=== PATIENT | male | born 1940 | race Caucasian/White ===

== ENCOUNTER → 2023-10-02 10:51 | Outpatient (REF) | payer OTHER, SELFPAY ==
[2023-10-02 15:30] LABS: % Basophils 0.7 % (0-2); % Eosinophils 2.5 % (0-6); % Immature Granulocytes 0.3 % (0-0.5); % Lymphocytes 44.9 % (20.5-51.1); % Monocytes 12.4 % (1.7-9.3); % Neutrophils 39.2 % (42.2-75.2); Absolute Basophils 0.1 10^3/uL (0-0.2); Absolute Eosinophils 0.2 10^3/uL (0-0.7); Absolute Monocytes 0.8 10^3/uL (0.1-0.6); Absolute Neutrophils 2.6 10^3/uL (1.4-6.5); Hematocrit 40.9 % (39.0-52.0); Hemoglobin 14.1 g/dL (13.0-18.0); Mean Corp Hgb Conc. 34.5 g/dL (33.0-37.0); Mean Corpuscular Hgb 32.7 pg (27.0-31.0); Mean Corpuscular Volume 94.9 fL (80.0-94.0); Mean Platelet Volume 11.4 fL (7.4-10.4); Nucleated Red Blood Cells % 0 % (-); Platelet Count 158 10^3/uL (130-400); Red Blood Cell Count 4.31 10^6/uL (4.70-6.10); Red Cell Dist. Width 13.9 % (11.5-14.5); White Blood Cell Count 6.7 10^3/uL (4.8-10.8)
[2023-10-02 15:46] LABS: Erythrocyte Sed Rate 35 mm/hour (0-20)
[2023-10-02 15:47] LABS: ALT (SGPT) 24 U/L (0-50); AST (SGOT) 32 U/L (17-59); Albumin 3.5 g/dl (3.5-5.0); Alkaline Phosphatase 78 U/L (38-126); Blood Urea Nitrogen 22 mg/dl (9-20); Calcium 8.9 mg/dl (8.4-10.2); Carbon Dioxide 27 mmol/L (22-30); Chloride 101 mmol/L (98-107); Glucose 94 mg/dl (70-99); Potassium 4.3 mmol/L (3.5-5.1); Sodium 136 mmol/L (135-145); Total Bilirubin 0.8 mg/dl (0.2-1.3); Total Protein 7.1 g/dl (6.3-8.2); eGFR > 60.00
== END ==
LOC: HWLAB 10:51
PROVIDERS: ATTENDING PHYSICIAN Internal Medicine Rheumatology; FAMILY PHYSICIAN Internal Medicine
DX: M05.89 Other rheumatoid arthritis with rheumatoid factor of multiple sites (principal); R79.82 Elevated C-reactive protein (CRP)
CPT/HCPCS: 36415; 80053; 85025; 85652; 86140

== ENCOUNTER → 2023-10-16 12:08 | Outpatient (REF) | payer OTHER, SELFPAY ==
[2023-10-16 16:32] LABS: PSA, Total - Diagnostic 0.19 ng/ml (0.0-4.0)
== END ==
LOC: HWLAB 12:08
PROVIDERS: ATTENDING PHYSICIAN Specialist; FAMILY PHYSICIAN Internal Medicine
DX: C61 Malignant neoplasm of prostate (principal)
CPT/HCPCS: 36415; 84153

== ENCOUNTER → 2023-11-12 08:13 | Outpatient (REF) | payer OTHER, SELFPAY ==
[2023-11-12 09:56] LABS: Urine Albumin Negative (Neg - Trace); Urine Bilirubin Negative (Negative); Urine Character Clear (Clear); Urine Color Yellow; Urine Glucose Negative (Negative); Urine Ketone Negative (Negative); Urine Leukocyte Negative (Negative); Urine Nitrite Negative (Negative); Urine Occult Blood Negative (Negative); Urine Urobilinogen Negative (Neg - 1+)
== END ==
LOC: HWLAB 08:13
PROVIDERS: ATTENDING PHYSICIAN Specialist; FAMILY PHYSICIAN Internal Medicine
DX: N39.0 Urinary tract infection, site not specified (principal)
CPT/HCPCS: 81003; 87086

== ENCOUNTER 2023-12-06 12:05 | Emergency (ER) | payer OTHER, SELFPAY ==
[2023-12-06 12:08] VITALS: BP 180/99
--- NOTE | 2023-12-06 12:48 | EDRN ---
Dr. Smith in room w/ pt at [facility] time.
--- NOTE | 2023-12-06 12:56 | ED.GENMED ---
History of Present Illness
General
Chief Complaint: Back Pain
Source: patient
Exam Limitations: none
Time Seen by Provider: 12/06/23 12:33
Nursing documentation reviewed up to this point in time: agreed with
Travel History
Have you had any contact with someone who has COVID-19?: No
Do you have any symptoms of coronavirus? Fever > 100 degrees, chills, cough, shortness of breath, sore throat, loss of taste or smell, muscle aches, or headache?: No
History of Present Illness
History of Present Illness:
Patient with history of intermittent back pain, presents to ED secondary to worsening right lower back pain radiating down his thigh over the past 2 weeks. Patient has taken Advil at home with minimal relief in symptoms. Denies direct trauma.
Denies recent injuries. Denies recent change in level activities. Patient states that his symptoms started 3 weeks ago, when he stood up from the chair. Denies urinary or bowel incontinence. Denies loss of sensation or weakness. Denies fever or
chills. Denies inability to walk. Patient is currently being treated for prostate cancer with Lupron injection by his urologist.
Past History
Past History
ED Past Medical History: Cancer (Prostate cancer) and Other (Rheumatoid arthritis, prostate cancer, status post right and left knee replacements, rosacea)
ED Past Surgical History: Orthopedic
Patient has exhibited threatening behavior?: No
Social History
Tobacco: Former smoker
Alcohol: Occasional
Drug: None
Personal:
Living: with family
Employment: Retired
Family History
Family History: Other (Mother with breast cancer, father with lung cancer)
Review of Systems
Review of Systems
Allergies reviewed?: Yes
All Other Systems: ROS reviewed and negative except as documented in HPI and ROS
Constitutional: Reports no symptoms
EENT: Reports no symptoms
ABD/GI: Reports no symptoms; Denies abdominal pain or vomiting
: Reports no symptoms; Denies incontinence
Musculoskeletal: Reports back pain
Skin: Reports no symptoms
Neurological: Denies weakness or numbness
Phy Exam
Physical Exam
Physical Exam:
Physical Exam
General: no apparent distress, not acutely ill. afebrile
Head: nc/at. eomi
Neck: supple. normal range of motion.
Abdomen: normal bowel sounds. not tender.
Back: no midline tenderness. mild left lower back tenderness at level of L4-L5
Neuro: alert and oriented. no focal neurological deficits. normal gait
Skin: no rash
Psychiatric: well kept. interactive and cooperative
Extremities: no edema. no calf tenderness.
Course
Orders/Labs/Results
Orders:
Orders
12/06/23 12:57
Dexamethasone Pf [Decadron] 10 mg PO NOW STA
Vital Signs
Initial and Last Documented VS:
Initial Vital Signs
Temp Pulse Resp BP Pulse Ox
97.3 F 71 18 180/99 96
12/06/23 12:08 12/06/23 12:08 12/06/23 12:08 12/06/23 12:08 12/06/23 12:08
Last Documented Vital Signs
Temp Pulse Resp BP Pulse Ox
97.3 F 71 18 180/99 96
12/06/23 12:08 12/06/23 12:08 12/06/23 12:08 12/06/23 12:08 12/06/23 12:08
MDM/Problems Addressed
MDM/Problems Addressed:
No indication for any imaging studies at this time, as patient had no traumatic injury precipitating his back pain. In addition, patient recently had PET scan in September 2023 which did not reveal any evidence of metastases in his bones. X-ray in
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 peripheral nerve impingement versus herniated disc. Otherwise patient does not have any exam findings concerning for cauda
equina syndrome. Patient is able to ambulate independently with steady gait. As such, patient will be given treatment via Decadron, with prescription for 1 additional dose, if symptoms persist after 48 hours. Patient also given information for
outpatient follow-up with orthopedic surgeon, for potential physical therapy versus outpatient MRI lumbar, if his symptoms persist.
*Critical Care Note
Total Time (30-74mins, 75-104mins- exclusive of procedures): Not Applicable
ED Attending Note
-
Portions of this chart may have been created with voice recognition software.� Occasional wrong word or��sound alike� substitutions may have occurred due to the inherent limitations of voice recognition software.
Discharge Plan
Departure
Patient Disposition: Home (Routine Discharge)
Date of Disposition: 12/06/23
Time of Disposition: 13:03
Patient with high blood pressure during this ER visit?: Yes
Discharge Problem:
Low back pain
Instructions: Low Back Pain (DC)
Prescriptions:
New
dexamethasone 2 mg tablet
10 mg PO DAILY 1 Days Qty: 5 0RF
No Action
acetaminophen [Tylenol Extra Strength] 500 MG tablet
500 mg PO Q4HPRN PRN (Reason: mild pain)
infliximab [Remicade] 100 MG/10 ML recon soln
100 mg IV Q6W
Patient Comments:
next injection due 08/05/19
ibuprofen 200 mg Capsule
200 mg PO Q6H PRN (Reason: pain)
tramadol 50 mg tablet
50 mg PO Q6HPRN PRN (Reason: severe pain/breakthrough pain) Qty: 10 0RF
Referrals:
Kvng Swenson MD [Family Provider] -
Thom Rivera MD [Active] -
Activity Restrictions/Additional Instructions:
As discussed, please follow-up with your primary care physician and/or referred orthopedic surgeon for further evaluation and treatment. You have been provided with prescription for 1 additional dose of Decadron, to be taken in 48 hours, if
symptoms persist. Please consider return to ED with worsening symptoms, i.e. fever/worsening pain/weakness/incontinence.
Interventions
Interventions:
*Risk Screen - Suicide Last Done: 12/06/23 12:10
*General Assessment Last Done: 12/06/23 12:10
*Neglect/Abuse Screening Last Done: 12/06/23 12:10
ED- Fall Risk Assessment Last Done: 12/06/23 12:58
*ED COVID-19 Vaccine History Last Done: 12/06/23 12:58
*Nursing Disposition Last Done: 12/06/23 13:25
ED-Musculoskeletal Assessment Last Done: 12/06/23 12:58
Discharge Date and Time
Discharge Date/Time: 12/06/23 13:25
Print Language: CYMRO
[2023-12-06 12:57] VITALS: BMI 28.8
[2023-12-06] MEDS: DECADRON 10 MG PO (13:03)
== END 2023-12-06 13:25 | disposition home or self-care (01) ==
LOC: EMR 12:05
PROVIDERS: EMERGENCY PHYSICIAN Emergency Medicine; FAMILY PHYSICIAN Internal Medicine
DX: M54.50 Low back pain, unspecified (principal); R03.0 Elevated blood-pressure reading, without diagnosis of hypertension; C61 Malignant neoplasm of prostate; M51.35 Other intervertebral disc degeneration, thoracolumbar region; M06.9 Rheumatoid arthritis, unspecified; Z96.653 Presence of artificial knee joint, bilateral; Z85.820 Personal history of malignant melanoma of skin; Z87.891 Personal history of nicotine dependence
CPT/HCPCS: 99283

== ENCOUNTER → 2023-12-20 17:26 | Outpatient (REF) | payer OTHER, SELFPAY ==
[2023-12-20 17:45] LABS: Urine Albumin Negative (Neg - Trace); Urine Bilirubin Negative (Negative); Urine Character Clear (Clear); Urine Color Yellow; Urine Glucose Negative (Negative); Urine Ketone Negative (Negative); Urine Leukocyte Negative (Negative); Urine Nitrite Negative (Negative); Urine Occult Blood Negative (Negative); Urine Specific Gravity 1.005 (<1.030); Urine Urobilinogen Negative (Neg - 1+)
== END ==
LOC: CLAB 17:26
PROVIDERS: ATTENDING PHYSICIAN Specialist
DX: N39.0 Urinary tract infection, site not specified (principal)
CPT/HCPCS: 81003; 87086

== ENCOUNTER → 2024-01-14 08:51 | Outpatient (REF) | payer OTHER, SELFPAY ==
[2024-01-14 11:58] LABS: PSA, Total - Diagnostic 0.16 ng/ml (0.0-4.0)
== END ==
LOC: HWLAB 08:51
PROVIDERS: ATTENDING PHYSICIAN Specialist; FAMILY PHYSICIAN Internal Medicine
DX: C61 Malignant neoplasm of prostate (principal)
CPT/HCPCS: 36415; 84153

== ENCOUNTER → 2024-02-07 12:48 | Outpatient (REF) | payer OTHER, SELFPAY ==
[2024-02-07 15:15] LABS: ALT (SGPT) 18 U/L (0-50); AST (SGOT) 32 U/L (17-59); Albumin 3.9 g/dl (3.5-5.0); Alkaline Phosphatase 68 U/L (38-126); Blood Urea Nitrogen 23 mg/dl (9-20); Calcium 8.9 mg/dl (8.4-10.2); Carbon Dioxide 27 mmol/L (22-30); Chloride 107 mmol/L (98-107); Glucose 112 mg/dl (70-99); Potassium 4.3 mmol/L (3.5-5.1); Sodium 140 mmol/L (135-145); Total Bilirubin 0.7 mg/dl (0.2-1.3); Total Protein 7.4 g/dl (6.3-8.2); eGFR > 60.00
[2024-02-07 15:20] LABS: C-Reactive Protein < 5.00 mg/L (0.0-10.00)
[2024-02-07 15:29] LABS: Erythrocyte Sed Rate 32 mm/hour (0-20)
[2024-02-07 17:44] LABS: % Basophils 0.6 % (0-2); % Eosinophils 2.6 % (0-6); % Immature Granulocytes 0.6 % (0-0.5); % Lymphocytes 43.5 % (20.5-51.1); % Monocytes 12.1 % (1.7-9.3); % Neutrophils 40.6 % (42.2-75.2); Absolute Eosinophils 0.2 10^3/uL (0-0.7); Absolute Lymphocytes 3.1 10^3/uL (1.2-3.4); Absolute Monocytes 0.9 10^3/uL (0.1-0.6); Absolute Neutrophils 2.9 10^3/uL (1.4-6.5); Hematocrit 43.1 % (39.0-52.0); Mean Corp Hgb Conc. 34.1 g/dL (33.0-37.0); Mean Corpuscular Hgb 32.7 pg (27.0-31.0); Mean Platelet Volume 13.2 fL (7.4-10.4); Nucleated Red Blood Cells % 0 % (-); Platelet Count 155 10^3/uL (130-400); Red Blood Cell Count 4.49 10^6/uL (4.70-6.10); Red Cell Dist. Width 14.3 % (11.5-14.5)
[2024-02-07 17:45] LABS: Hemoglobin 14.7 g/dL (13.0-18.0)
== END ==
LOC: HWLAB 12:48
PROVIDERS: ATTENDING PHYSICIAN Internal Medicine Rheumatology; FAMILY PHYSICIAN Internal Medicine
DX: M05.89 Other rheumatoid arthritis with rheumatoid factor of multiple sites (principal); R79.82 Elevated C-reactive protein (CRP)
CPT/HCPCS: 36415; 80053; 85025; 85652; 86140

== ENCOUNTER → 2024-03-12 13:16 | Outpatient (REF) | payer OTHER, SELFPAY ==
[2024-03-12 16:34] LABS: PSA, Total - Diagnostic 0.24 ng/ml (0.0-4.0)
== END ==
LOC: HWLAB 13:16
PROVIDERS: ATTENDING PHYSICIAN Family Medicine Geriatric Medicine; FAMILY PHYSICIAN Internal Medicine
DX: C61 Malignant neoplasm of prostate (principal)
CPT/HCPCS: 36415; 84153

== ENCOUNTER → 2024-03-19 13:00 | Outpatient (REF) | payer OTHER, SELFPAY ==
[2024-03-22 00:49] LABS: % Free Testosterone 1.3 % (1.6-2.9); Free Testosterone 6 pg/mL (47-244); Sex Hormone Binding Globulin 53 nmol/L (19-76); Total Testosterone 46 ng/dL (300-720)
== END ==
LOC: HWLAB 13:00
PROVIDERS: ATTENDING PHYSICIAN Family Medicine Geriatric Medicine; FAMILY PHYSICIAN Internal Medicine
DX: C61 Malignant neoplasm of prostate (principal); Z79.818 Long term (current) use of other agents affecting estrogen receptors and estrogen levels
CPT/HCPCS: 36415; 84270; 84402; 84403

== ENCOUNTER → 2024-07-06 08:16 | Outpatient (REF) | payer OTHER, SELFPAY ==
[2024-07-06 10:06] LABS: % Basophils 0.8 % (0-2); % Eosinophils 1.9 % (0-6); % Immature Granulocytes 0.4 % (0-0.5); % Lymphocytes 38.5 % (20.5-51.1); % Monocytes 13.4 % (1.7-9.3); Absolute Eosinophils 0.1 10^3/uL (0-0.7); Absolute Monocytes 0.7 10^3/uL (0.1-0.6); Absolute Neutrophils 2.4 10^3/uL (1.4-6.5); Hematocrit 45.7 % (39.0-52.0); Hemoglobin 15.4 g/dL (13.0-18.0); Mean Corp Hgb Conc. 33.7 g/dL (33.0-37.0); Mean Corpuscular Hgb 30.7 pg (27.0-31.0); Mean Corpuscular Volume 91.2 fL (80.0-94.0); Mean Platelet Volume 11.2 fL (7.4-10.4); Nucleated Red Blood Cells % 0 % (-); Platelet Count 149 10^3/uL (130-400); Red Blood Cell Count 5.01 10^6/uL (4.70-6.10); Red Cell Dist. Width 13.6 % (11.5-14.5); White Blood Cell Count 5.3 10^3/uL (4.8-10.8)
[2024-07-06 10:44] LABS: ALT (SGPT) 20 U/L (0-50); AST (SGOT) 33 U/L (17-59); Albumin 4.3 g/dl (3.5-5.0); Alkaline Phosphatase 55 U/L (38-126); Blood Urea Nitrogen 20 mg/dl (9-20); Calcium 9.3 mg/dl (8.4-10.2); Carbon Dioxide 29 mmol/L (22-30); Chloride 103 mmol/L (98-107); Glucose 104 mg/dl (70-99); HDL Cholesterol 54 mg/dl; LDL Cholesterol, Calculated 132 mg/dl; Potassium 5.1 mmol/L (3.5-5.1); Sodium 142 mmol/L (135-145); Total Bilirubin 0.9 mg/dl (0.2-1.3); Total Cholesterol 212 mg/dl (50-199); Total Protein 8.2 g/dl (6.3-8.2); Triglyceride 132 mg/dl (10-149); Very Low Density Lipoprotein 26 mg/dl (0-30); eGFR > 60.00
[2024-07-06 11:13] LABS: PSA, Total - Diagnostic 0.37 ng/ml (0.0-4.0)
== END ==
LOC: HWLAB 08:16
PROVIDERS: ATTENDING PHYSICIAN Internal Medicine
DX: Z00.00 Encounter for general adult medical examination without abnormal findings (principal); R97.21 Rising PSA following treatment for malignant neoplasm of prostate; Z85.46 Personal history of malignant neoplasm of prostate; E78.00 Pure hypercholesterolemia, unspecified; I10 Essential (primary) hypertension
CPT/HCPCS: 36415; 80053; 80061; 84153; 85025

== ENCOUNTER → 2024-08-07 07:43 | Outpatient (REF) | payer OTHER, SELFPAY ==
[2024-08-07 10:42] LABS: ALT (SGPT) 20 U/L (0-50); AST (SGOT) 31 U/L (17-59); Albumin 3.8 g/dl (3.5-5.0); Alkaline Phosphatase 53 U/L (38-126); Blood Urea Nitrogen 19 mg/dl (9-20); Calcium 8.8 mg/dl (8.4-10.2); Carbon Dioxide 31 mmol/L (22-30); Chloride 106 mmol/L (98-107); Glucose 79 mg/dl (70-99); Potassium 4.4 mmol/L (3.5-5.1); Sodium 143 mmol/L (135-145); Total Bilirubin 0.8 mg/dl (0.2-1.3); Total Protein 7.4 g/dl (6.3-8.2); eGFR > 60.00
[2024-08-07 11:12] LABS: Hematocrit 44.3 % (39.0-52.0); Hemoglobin 14.4 g/dL (13.0-18.0); Mean Corp Hgb Conc. 32.5 g/dL (33.0-37.0); Mean Corpuscular Hgb 30.8 pg (27.0-31.0); Mean Corpuscular Volume 94.7 fL (80.0-94.0); Mean Platelet Volume 11.7 fL (7.4-10.4); Platelet Count 150 10^3/uL (130-400); Red Blood Cell Count 4.68 10^6/uL (4.70-6.10); Red Cell Dist. Width 14.3 % (11.5-14.5); White Blood Cell Count 5.4 10^3/uL (4.8-10.8)
[2024-08-07 13:42] LABS: Erythrocyte Sed Rate 24 mm/hour (0-20)
[2024-08-07 14:41] LABS: % Basophils 1.3 % (0-2); % Eosinophils 4.1 % (0-6); % Immature Granulocytes 0.2 % (0-0.5); % Lymphocytes 51.3 % (20.5-51.1); % Monocytes 13.9 % (1.7-9.3); % Neutrophils 29.2 % (42.2-75.2); Absolute Basophils 0.1 10^3/uL (0-0.2); Absolute Eosinophils 0.2 10^3/uL (0-0.7); Absolute Lymphocytes 2.8 10^3/uL (1.2-3.4); Absolute Monocytes 0.8 10^3/uL (0.1-0.6); Absolute Neutrophils 1.6 10^3/uL (1.4-6.5); Nucleated Red Blood Cells % 0 % (-)
== END ==
LOC: HWLAB 07:43
PROVIDERS: ATTENDING PHYSICIAN Internal Medicine Rheumatology; FAMILY PHYSICIAN Internal Medicine
DX: M05.89 Other rheumatoid arthritis with rheumatoid factor of multiple sites (principal)
CPT/HCPCS: 36415; 80053; 85025; 85652; 86140

== ENCOUNTER → 2024-09-14 09:59 | Outpatient (REF) | payer OTHER, SELFPAY ==
[2024-09-16 18:31] LABS: % Free Testosterone 1.2 % (1.6-2.9); Free Testosterone 1 pg/mL (47-244); Sex Hormone Binding Globulin 55 nmol/L (19-76); Total Testosterone 9 ng/dL (300-720)
== END ==
LOC: HWLAB 09:59
PROVIDERS: ATTENDING PHYSICIAN Family Medicine Geriatric Medicine; FAMILY PHYSICIAN Internal Medicine
DX: C61 Malignant neoplasm of prostate (principal); Z79.818 Long term (current) use of other agents affecting estrogen receptors and estrogen levels
CPT/HCPCS: 36415; 84153; 84270; 84402; 84403

== ENCOUNTER → 2024-11-16 09:06 | Outpatient (REF) | payer OTHER, SELFPAY ==
[2024-11-16 12:06] LABS: PSA, Total - Diagnostic 0.51 ng/ml (0.0-4.0)
[2024-11-17 17:04] LABS: % Free Testosterone 1.3 % (1.6-2.9); Free Testosterone <1 pg/mL (47-244); Sex Hormone Binding Globulin 52 nmol/L (19-76); Total Testosterone 3 ng/dL (300-720)
== END ==
LOC: HWLAB 09:06
PROVIDERS: ATTENDING PHYSICIAN Family Medicine Geriatric Medicine; FAMILY PHYSICIAN Internal Medicine; REFERRING PHYSICIAN Specialist
DX: C61 Malignant neoplasm of prostate (principal); Z79.818 Long term (current) use of other agents affecting estrogen receptors and estrogen levels; Z12.5 Encounter for screening for malignant neoplasm of prostate
CPT/HCPCS: 36415; 84153; 84270; 84402; 84403

== ENCOUNTER → 2024-12-28 20:25 | Outpatient (REF) | payer OTHER, SELFPAY | LOC: MRI 3T 20:25 | PROVIDERS: ATTENDING PHYSICIAN Physician Assistant Surgical; FAMILY PHYSICIAN Internal Medicine | DX: M54.50 Low back pain, unspecified (principal) | CPT/HCPCS: 72148 ==

== ENCOUNTER → 2025-02-10 07:20 | Outpatient (REF) | payer OTHER, SELFPAY ==
[2025-02-10 09:33] LABS: ALT (SGPT) 19 U/L (0-50); AST (SGOT) 28 U/L (17-59); Albumin 3.9 g/dl (3.5-5.0); Alkaline Phosphatase 59 U/L (38-126); Blood Urea Nitrogen 18 mg/dl (9-20); Calcium 8.7 mg/dl (8.4-10.2); Carbon Dioxide 27 mmol/L (22-30); Chloride 110 mmol/L (98-107); Glucose 83 mg/dl (70-99); Sodium 142 mmol/L (135-145); Total Bilirubin 0.9 mg/dl (0.2-1.3); Total Protein 7.3 g/dl (6.3-8.2); eGFR > 60.00
[2025-02-10 09:37] LABS: C-Reactive Protein < 5.00 mg/L (0.0-10.00)
[2025-02-10 10:15] LABS: Hematocrit 43.3 % (39.0-52.0); Hemoglobin 14.4 g/dL (13.0-18.0); Mean Corp Hgb Conc. 33.3 g/dL (33.0-37.0); Mean Corpuscular Volume 93.1 fL (80.0-94.0); Mean Platelet Volume 11.8 fL (7.4-10.4); Platelet Count 153 10^3/uL (130-400); Red Blood Cell Count 4.65 10^6/uL (4.70-6.10); Red Cell Dist. Width 14.4 % (11.5-14.5); White Blood Cell Count 4.7 10^3/uL (4.8-10.8)
[2025-02-10 10:42] LABS: Erythrocyte Sed Rate 28 mm/hour (0-20)
[2025-02-10 10:57] LABS: % Basophils 1.1 % (0-2); % Eosinophils 3.9 % (0-6); % Immature Granulocytes 0.2 % (0-0.5); % Lymphocytes 52.7 % (20.5-51.1); % Monocytes 13.1 % (1.7-9.3); Absolute Basophils 0.1 10^3/uL (0-0.2); Absolute Eosinophils 0.2 10^3/uL (0-0.7); Absolute Lymphocytes 2.5 10^3/uL (1.2-3.4); Absolute Monocytes 0.6 10^3/uL (0.1-0.6); Absolute Neutrophils 1.4 10^3/uL (1.4-6.5); Nucleated Red Blood Cells % 0 % (-)
== END ==
LOC: HWLAB 07:20
PROVIDERS: ATTENDING PHYSICIAN Internal Medicine Rheumatology; FAMILY PHYSICIAN Internal Medicine
DX: M05.89 Other rheumatoid arthritis with rheumatoid factor of multiple sites (principal); Z51.81 Encounter for therapeutic drug level monitoring
CPT/HCPCS: 36415; 80053; 85025; 85652; 86140

== ENCOUNTER → 2025-02-22 12:37 | Outpatient (REF) | payer OTHER, SELFPAY | LOC: HWRAD 12:37 | PROVIDERS: ATTENDING PHYSICIAN Family Medicine Geriatric Medicine; FAMILY PHYSICIAN Internal Medicine | DX: M89.8X9 Other specified disorders of bone, unspecified site (principal); Z79.818 Long term (current) use of other agents affecting estrogen receptors and estrogen levels; R79.89 Other specified abnormal findings of blood chemistry; Z91.89 Other specified personal risk factors, not elsewhere classified | CPT/HCPCS: 77080 ==

== ENCOUNTER → 2025-03-15 10:08 | Outpatient (REF) | payer OTHER, SELFPAY ==
[2025-03-15 13:41] LABS: PSA, Total - Diagnostic 1.20 ng/ml (0.0-4.0)
== END ==
LOC: HWLAB 10:08
PROVIDERS: ATTENDING PHYSICIAN Family Medicine Geriatric Medicine; FAMILY PHYSICIAN Internal Medicine
DX: Z12.5 Encounter for screening for malignant neoplasm of prostate (principal); R97.21 Rising PSA following treatment for malignant neoplasm of prostate
CPT/HCPCS: 84153

== ENCOUNTER → 2025-05-28 07:08 | Outpatient (REF) | payer OTHER, SELFPAY ==
[2025-05-28 10:27] LABS: PSA, Total - Diagnostic 2.04 ng/ml (0.0-4.0)
== END ==
LOC: HWLAB 07:08
PROVIDERS: ATTENDING PHYSICIAN Specialist; FAMILY PHYSICIAN Internal Medicine
DX: C61 Malignant neoplasm of prostate (principal)
CPT/HCPCS: 36415; 84153; 84403

== ENCOUNTER → 2025-07-07 06:45 | Outpatient (REF) | payer OTHER, SELFPAY ==
[2025-07-07 10:56] LABS: Hematocrit 43.4 % (39.0-52.0); Hemoglobin 14.4 g/dL (13.0-18.0); Mean Corp Hgb Conc. 33.2 g/dL (33.0-37.0); Mean Corpuscular Volume 92.3 fL (80.0-94.0); Nucleated Red Blood Cells % 0 % (-); Platelet Count 165 10^3/uL (130-400); Red Cell Dist. Width 14.5 % (11.5-14.5)
[2025-07-07 11:14] LABS: ALT (SGPT) 20 U/L (0-50); AST (SGOT) 32 U/L (17-59); Albumin 4.1 g/dl (3.5-5.0); Alkaline Phosphatase 59 U/L (38-126); Blood Urea Nitrogen 20 mg/dl (9-20); Calcium 8.8 mg/dl (8.4-10.2); Carbon Dioxide 27 mmol/L (22-30); Chloride 102 mmol/L (98-107); Glucose 107 mg/dl (70-99); HDL Cholesterol 55 mg/dl; LDL Cholesterol, Calculated 126 mg/dl; Potassium 4.5 mmol/L (3.5-5.1); Sodium 137 mmol/L (135-145); Total Protein 7.9 g/dl (6.3-8.2); Very Low Density Lipoprotein 20 mg/dl (0-30); eGFR > 60.00
== END ==
LOC: HWLAB 06:45
PROVIDERS: ATTENDING PHYSICIAN Internal Medicine
DX: E78.00 Pure hypercholesterolemia, unspecified (principal); I10 Essential (primary) hypertension; R03.0 Elevated blood-pressure reading, without diagnosis of hypertension; E66.3 Overweight
CPT/HCPCS: 36415; 80053; 80061; 85025

== ENCOUNTER → 2025-07-20 06:16 | Outpatient (REF) | payer OTHER, SELFPAY ==
[2025-07-20 10:42] LABS: ALT (SGPT) 20 U/L (0-50); AST (SGOT) 30 U/L (17-59); Albumin 4.0 g/dl (3.5-5.0); Alkaline Phosphatase 57 U/L (38-126); Blood Urea Nitrogen 17 mg/dl (9-20); Calcium 9.0 mg/dl (8.4-10.2); Carbon Dioxide 29 mmol/L (22-30); Chloride 103 mmol/L (98-107); Glucose 104 mg/dl (70-99); HDL Cholesterol 49 mg/dl; LDL Cholesterol, Calculated 123 mg/dl; Potassium 4.3 mmol/L (3.5-5.1); Sodium 135 mmol/L (135-145); Total Protein 7.2 g/dl (6.3-8.2); Very Low Density Lipoprotein 22 mg/dl (0-30); eGFR > 60.00
[2025-07-20 11:07] LABS: Hematocrit 45.6 % (39.0-52.0); Hemoglobin 14.5 g/dL (13.0-18.0); Mean Corpuscular Volume 95.2 fL (80.0-94.0)
[2025-07-20 11:08] LABS: Mean Corp Hgb Conc. 31.8 g/dL (33.0-37.0); Nucleated Red Blood Cells % 0 % (-); Platelet Count 175 10^3/uL (130-400); Red Cell Dist. Width 14.4 % (11.5-14.5)
== END ==
LOC: HWLAB 06:16
PROVIDERS: ATTENDING PHYSICIAN Internal Medicine; REFERRING PHYSICIAN Family Medicine Geriatric Medicine
DX: I10 Essential (primary) hypertension (principal); E66.3 Overweight
CPT/HCPCS: 36415; 80053; 80061; 84153; 84154; 85025

== ENCOUNTER → 2025-08-13 11:50 | Outpatient (REF) | payer OTHER, SELFPAY ==
[2025-08-13 12:42] LABS: Hematocrit 40.5 % (39.0-52.0); Hemoglobin 13.9 g/dL (13.0-18.0); Mean Corp Hgb Conc. 34.3 g/dL (33.0-37.0); Mean Corpuscular Volume 90.4 fL (80.0-94.0); Nucleated Red Blood Cells % 0 % (-); Platelet Count 167 10^3/uL (130-400); Red Cell Dist. Width 13.8 % (11.5-14.5)
[2025-08-13 12:55] LABS: INR 1.06; PT 13.9 Sec (11.4-14.6)
[2025-08-13 12:56] LABS: APTT 31.1 Sec (23.4-35.0)
[2025-08-13 13:11] LABS: ALT (SGPT) 18 U/L (0-50); AST (SGOT) 28 U/L (17-59); Albumin 3.9 g/dl (3.5-5.0); Alkaline Phosphatase 72 U/L (38-126); Blood Urea Nitrogen 19 mg/dl (9-20); Calcium 8.6 mg/dl (8.4-10.2); Carbon Dioxide 24 mmol/L (22-30); Chloride 104 mmol/L (98-107); Glucose 109 mg/dl (70-99); Potassium 4.1 mmol/L (3.5-5.1); Sodium 137 mmol/L (135-145); Total Protein 7.8 g/dl (6.3-8.2); eGFR > 60.00
[2025-08-13 13:40] LABS: PSA, Total - Diagnostic 5.05 ng/ml (0.0-4.0)
== END ==
LOC: REG 11:50
PROVIDERS: ATTENDING PHYSICIAN Internal Medicine Hematology & Oncology; FAMILY PHYSICIAN Internal Medicine
DX: C61 Malignant neoplasm of prostate (principal)
CPT/HCPCS: 36415; 80053; 84153; 84270; 84402; 84403; 85025; 85610; 85730